=== PATIENT | male | born 1995 | race Caucasian/White ===

== ENCOUNTER 2016-08-17 12:40 | Emergency (ER) | payer OTHER ==
[2016-08-17 12:52] VITALS: BP 129/81; TEMP 97.3; O2SAT 97
--- NOTE | 2016-08-17 12:54 | ED.PDOC ---
History of Present Illness - General Chief Complaint: Upper Extremity Injury Stated Complaint: R hand pain Time Seen by Provider: 08/17/16 12:42 Source: patient, RN notes reviewed, Vital Signs reviewed Exam Limitations: no limitations - History of Present Illness Initial Comments: Couch fell on right hand. He was helping a friend move and the friend dropped the couch and he tried to catch it. Pain and deformity of lateral aspect of hand. No numbness or tingling. Decreased ROM due to pain. Occurred: just prior to arrival Pain - Upper Extremity: severe: Hand, right Method of Injury: direct blow Improving Factors: rest Worsening Factors: movement Review of Systems - Review of Systems Constitutional: States: no symptoms reported Musculoskeletal: States: see HPI Skin: States: no symptoms reported Neurological: States: no symptoms reported. Denies: numbness, paresthesia, tingling, weakness Family Medical History - Family History Mother Family History: Unknown Physical Exam - Physical Exam General Appearance: Alert, Comfortable, No apparent distress, Well Developed, Well Groomed, Well Hydrated, Well Nourished Cardiovascular/Respiratory: normal peripheral pulses Elbow/Forearm Exam: normal inspection, non-tender, no evidence of injury, normal ROM Wrist Exam: normal inspection, non-tender, no evidence of injury, normal ROM Hand Exam: abrasions, bone tenderness - Over 4th & 5th metacarpals, deformity - lateral aspect of hand, limited ROM - due to pain, soft tissue tenderness, swelling Neuro/Tendon: normal sensation, normal motor functions, normal tendon functions Mental Status: alert, oriented x 3 Skin Exam: normal color, warm/dry Progress - EKG/XRAY/CT XRAY: hand - Cominuted, intra-articular fracture of 5th metacarpal Procedures - Splinting Right 5th Digit Hand Hand-Made Type: fiberglass Splint: ulnar Pre-Proc Neuro Vasc Exam: normal Post-Proc Neuro Vasc Exam: normal Departure - Departure Clinical Impression: Closed fracture of fifth metacarpal bone of right hand Qualifiers: Encounter type: initial encounter Metacarpal location: base Fracture alignment : nondisplaced Qualifier Code: (S62.346A) Nondisplaced fracture of base of fifth metacarpal bone, right hand, initial encounter for closed fracture Time of Disposition: 13:37 Disposition: Discharge to Home or Self Care Condition: Good Departure Forms: ED Discharge - Pt. Copy, Patient Portal Self Enrollment Instructions: DI for a Hand Fracture Diet: resume usual diet Activity: no pushing/pulling with affected limb Referrals: Chandler Mckoen MD [Active Staff] - 1-5 Days Additional Instructions: Wear splint until follow up with Dr. Mckeon
--- NOTE | 2016-08-17 13:24 | RAD ---
Procedure: XR HAND 3 OR MORE VIEWS Exam Date: 08/17/2016 Ordering Provider: Asia Taylor Clinical Indication: Couch fell on it, 5th metacarpal deformity Comparison: None Findings: Comminuted fracture with intra-articular extension at the base of the fifth metacarpal with overlying soft tissue swelling. There may be a nondisplaced fracture at the base of the fourth metacarpal. No other fracture or dislocation in the right hand. There are no lytic or sclerotic lesions. There is no radiopaque foreign body. There is no subcutaneous gas. Impression: 1.Comminuted fracture with intra-articular extension at the base of the fifth metacarpal with overlying soft tissue swelling. 2.There may be a nondisplaced fracture at the base of the fourth metacarpal. 3.No other fracture or dislocation in the right hand. Electronically signed by: Rishabh Culver MD 08/17/2016 1:23 PM CDT
[2016-08-17] MEDS ORDERED: IBUPROFEN 200 MG TAB PO ONE (13:34)
== END 2016-08-17 13:51 | disposition home or self-care (01) ==
LOC: ER 12:40
DX: S62.346A Nondisplaced fracture of base of fifth metacarpal bone, right hand, initial encounter for closed fracture (principal); X58.XXXA Exposure to other specified factors, initial encounter